=== PATIENT | female | born 1965 | race African-American/Black ===

== ENCOUNTER 2018-08-04 16:03 | Emergency (ER) | payer OTHER ==
[2018-08-04 16:48] VITALS: TEMP 99.9
[2018-08-04] MEDS ORDERED: DIPHENOX-ATROP 2.5-0.025 MG 1 EACH TAB PO STA (17:32)
[2018-08-04] MEDS ORDERED: SODIUM CHLORIDE 0.9% 1,000 ML IV STA (17:32)
[2018-08-04] MEDS ORDERED: ONDANSETRON 4 MG/2 ML VIAL IVP STA (17:32)
[2018-08-04] MEDS ORDERED: SODIUM CHLORIDE 0.9% 500 ML 500 ML IV STA (17:32)
--- NOTE | 2018-08-04 17:37 | ED ---
General Adult HPI - General Chief complaint: Nausea/Vomiting/Diarrhea Stated complaint: pain all over, nvd Time Seen by Provider: 08/04/18 16:05 Source: patient, RN notes reviewed Mode of arrival: ambulatory Limitations: no limitations - History of Present Illness Initial comments: This is a 52-year-old female presents emergency Department complaining of nausea vomiting diarrhea. Patient states started last night the middle the night and has been ongoing ever since. Patient states she's been able to keep any food or water down. Patient states she was worried that maybe she could be having meningitis. Patient denies any abdominal pain. Patient denies any chest pain or palpitations. Patient denies any difficulty breathing shortest breath. Patient denies being lightheaded dizzy or having any near syncopal episode. Patient denies any recent fever chills or cough. - Related Data Home Medications Medication Instructions Recorded Confirmed Acetaminophen Tab [Tylenol Tab] 650 mg PO Q4H 08/04/18 08/04/18 Ibuprofen [Motrin Ib] 600 mg PO 08/04/18 Allergies Allergy/AdvReac Type Severity Reaction Status Date / Time No Known Allergies Allergy Verified 08/04/18 17:34 Review of Systems ROS Statement: Those systems with pertinent positive or pertinent negative responses have been documented in the HPI. ROS Other: All systems not noted in ROS Statement are negative. Past Medical History Past Medical History: No Reported History History of Any Multi-Drug Resistant Organisms: None Reported Past Surgical History: Breast Surgery Past Psychological History: No Psychological Hx Reported Smoking Status: Never smoker Past Alcohol Use History: None Reported Past Drug Use History: None Reported General Exam - General Exam Comments Initial Comments: GENERAL: Patient is well-developed and well-nourished. Patient is nontoxic and well- hydrated and is in no acute distress. ENT: Neck is soft and supple. No significant lymphadenopathy is noted. Oropharynx is clear. Moist mucous membranes. Neck has full range of motion without eliciting any pain. EYES: The sclera were anicteric and conjunctiva were pink and moist. Extraocular movements were intact and pupils were equal round and reactive to light. Eyelids were unremarkable. PULMONARY: Unlabored respirations. Good breath sounds bilaterally. No audible rales rhonchi or wheezing was noted. CARDIOVASCULAR: There is a regular rate and rhythm without any murmurs gallops or rubs. ABDOMEN: Soft and nontender with normal bowel sounds. No palpable organomegaly was noted. There is no palpable pulsatile mass. SKIN: Skin is clear with no lesions or rashes and otherwise unremarkable. NEUROLOGIC: Patient is alert and oriented x3. Cranial nerves II through XII are grossly intact. Motor and sensory are also intact. Normal speech, volume and content. Symmetrical smile. MUSCULOSKELETAL: Normal extremities with adequate strength and full range of motion. No lower extremity swelling or edema. No calf tenderness. LYMPHATICS: No significant lymphadenopathy is noted PSYCHIATRIC: Normal psychiatric evaluation. Limitations: no limitations Course Vital Signs 08/04/18 16:44 Temperature 99.9 F H Pulse Rate 113 H Respiratory 20 Rate Blood Pressure 113/64 O2 Sat by Pulse 96 Oximetry Medical Decision Making - Medical Decision Making EKG shows sinus tachycardia at 109 bpm IL interval 254 QRS is 84 QT interval 336 QTC is 452. Patient's EKG shows no ST segment elevation or depression or T wave abnormalities are noted. I will back into reevaluate the patient she had no more nausea vomiting or diarrhea while in the emergency department. Patient's abdomen remains soft. Patient states she felt considerably better. - Lab Data Result diagrams: 08/04/18 17:42 08/04/18 17:42 Lab Results 08/04/18 08/04/18 08/04/18 Range/Units 17:42 17:42 17:42 WBC 6.6 (3.8-10.6) k/uL RBC 5.00 (3.80-5.40) m/uL Hgb 13.6 (11.4-16.0) gm/dL Hct 42.6 (34.0-46.0) % MCV 85.2 (80.0-100.0) fL MCH 27.1 (25.0-35.0) pg MCHC 31.8 (31.0-37.0) g/dL RDW 13.9 (11.5-15.5) % Plt Count 256 (150-450) k/uL Neutrophils % 89 % Lymphocytes % 6 % Monocytes % 2 % Eosinophils % 2 % Basophils % 0 % Neutrophils # 5.9 (1.3-7.7) k/uL Lymphocytes # 0.4 L (1.0-4.8) k/uL Monocytes # 0.2 (0-1.0) k/uL Eosinophils # 0.1 (0-0.7) k/uL Basophils # 0.0 (0-0.2) k/uL Sodium 138 (137-145) mmol/L Potassium 4.0 (3.5-5.1) mmol/L Chloride 104 (98-107) mmol/L Carbon Dioxide 24 (22-30) mmol/L Anion Gap 10 mmol/L BUN 16 (7-17) mg/dL Creatinine 0.66 (0.52-1.04) mg/dL Est GFR (CKD-EPI)AfAm >90 (>60 ml/min/1.73 sqM) Est GFR (CKD-EPI)NonAf >90 (>60 ml/min/1.73 sqM) Glucose 116 H (74-99) mg/dL Calcium 9.0 (8.4-10.2) mg/dL Total Bilirubin 0.6 (0.2-1.3) mg/dL AST 35 (14-36) U/L ALT 33 (9-52) U/L Alkaline Phosphatase 93 (38-126) U/L Troponin I <0.012 (0.000-0.034) ng/mL Total Protein 7.2 (6.3-8.2) g/dL Albumin 3.9 (3.5-5.0) g/dL Amylase 62 (30-110) U/L Lipase 60 (23-300) U/L Disposition Clinical Impression: Gastroenteritis Disposition: HOME SELF-CARE Condition: Good Instructions: Gastroenteritis (ED) Additional Instructions: Patient should take Motrin and Tylenol for the fever and aches. Patient's take Zofran and Lomotil as prescribed. Is patient prescribed a controlled substance at d/c from ED?: No Referrals: None,Stated [Primary Care Provider] - 1-2 days Time of Disposition: 19:54
[2018-08-04] MEDS ORDERED: IBUPROFEN IV 600 MG in SODIUM CHLORIDE 0.9% 250 ML IV STA (17:38)
[2018-08-04 17:58] LABS: Basophils % (A) 0 %; Eosinophils # (A) 0.1 k/uL (0-0.7); Eosinophils % (A) 2 %; HCT 42.6 % (34.0-46.0); HGB 13.6 gm/dL (11.4-16.0); Lymphocytes # (A) 0.4 k/uL (1.0-4.8); Lymphocytes % (A) 6 %; MCH 27.1 pg (25.0-35.0); MCHC 31.8 g/dL (31.0-37.0); MCV 85.2 fL (80.0-100.0); Mean Platelet Volume 6.7; Monocytes # (A) 0.2 k/uL (0-1.0); Monocytes % (A) 2 %; Neutrophils # (A) 5.9 k/uL (1.3-7.7); Neutrophils % (A) 89 %; Platelet Count 256 k/uL (150-450); RDW 13.9 % (11.5-15.5); WBC 6.6 k/uL (3.8-10.6)
[2018-08-04 18:10] LABS: ALT 33 U/L (9-52); AST 35 U/L (14-36); Albumin 3.9 g/dL (3.5-5.0); Alkaline Phosphatase 93 U/L (38-126); Amylase 62 U/L (30-110); Anion Gap 10 mmol/L; Blood Urea Nitrogen 16 mg/dL (7-17); Carbon Dioxide 24 mmol/L (22-30); Chloride 104 mmol/L (98-107); Glucose 116 mg/dL (74-99); Lipase 60 U/L (23-300); Sodium 138 mmol/L (137-145); Total Bilirubin 0.6 mg/dL (0.2-1.3); Total Protein 7.2 g/dL (6.3-8.2)
--- NOTE | 2018-08-04 19:16 | XR ---
EXAMINATION TYPE: XR KUB, 2 views DATE OF EXAM: 08/04/2018 COMPARISON: NONE HISTORY: Abdominal pain TECHNIQUE: 2 upright views FINDINGS: Visualized lung bases and pleural spaces are negative. No pneumoperitoneum or pneumatosis. The bowel gas pattern is normal. No definite acute skeletal or soft tissue findings. IMPRESSION: No acute radiographic process.
[2018-08-04] MEDS ORDERED: ONDANSETRON 4 MG ODT STARTER PACK 2 TAB BTL PO STA (19:54)
[2018-08-04] MEDS ORDERED: DIPHENOX-ATROP STARTER PACK 8 TAB BTL PO PRN (19:54)
[2018-08-04 20:02] LABS: Amorphous Sediment,Urine Rare /hpf; Appearance,Urine Cloudy (Clear); Bacteria,Urine Occasional /hpf; Bilirubin,Urine Negative (Negative); Blood,Urine Negative (Negative); Color,Urine Yellow; Glucose,Urine (UA) Negative (Negative); Ketones,Urine 1+ (Negative); Leukocyte Esterase,Urine Negative (Negative); Mucus,Urine Occasional /hpf; Nitrite,Urine Negative (Negative); PH, Urine 5.5 (5.0-8.0); Protein,Urine Trace (Negative); RBC,Urine 4 /hpf (0-5); Specific Gravity,Urine 1.028 (1.001-1.035); Squamous Epithelial Cell,Urine 14 /hpf (0-4); Urobilinogen,Urine <2.0 mg/dL (<2.0); WBC,Urine 4 /hpf (0-5)
[2018-08-04 20:23] VITALS: BP 123/66; PULSE 98; RESP 16
== END 2018-08-04 20:20 | disposition home or self-care (01) ==
LOC: EC 16:03
DX: K52.9 Noninfective gastroenteritis and colitis, unspecified (principal); Z79.1 Long term (current) use of non-steroidal anti-inflammatories (NSAID); Z79.899 Other long term (current) drug therapy
CPT/HCPCS: 36415; 93005; 80053; 82150; 83690; 84484; 85025; 81001; 74018; 99284; 96365; 96375; 96361; J2405; S0119; J1741